=== PATIENT | male | born 2000 | race Caucasian/White ===

== ENCOUNTER 2021-07-14 13:24 | Emergency (ER) | payer SELFPAY ==
[2021-07-14 14:37] LABS: HEMOGLOBIN 16.4 gm/dl (14.0-17.5); RED BLOOD COUNT 5.64 M/UL (4.20-5.50); WHITE BLOOD COUNT 7.8 K/UL (4.5-11.0)
[2021-07-14 14:59] LABS: BUN/CREATININE RATIO 7 (0-10)
[2021-07-14] MEDS ORDERED: PHENERGAN 25 MG25 M1 PO (20:11)
[2021-07-14] MEDS ORDERED: ZOFRAN ODT 4 MG4 MG SL (20:11)
== END 2021-07-14 21:00 | disposition home or self-care (01) ==
LOC: ER1 13:24
PROVIDERS: Physician Assistant
DX: R10.9 Unspecified abdominal pain (principal); R10.811 Right upper quadrant abdominal tenderness; R10.813 Right lower quadrant abdominal tenderness; F17.200 Nicotine dependence, unspecified, uncomplicated
CPT/HCPCS: 80053; 81001; 83690; 85025; 96374; 99284; J2550